=== PATIENT | female | born 1945 | race Caucasian/White ===

== ENCOUNTER 2017-09-06 11:15 | Observation (INO) ==
--- NOTE | 2017-09-06 11:24 | Emergency Department Note ---
Disposition Clinical Impression: Weakness Transient cerebral ischemia Qualifiers: Transient cerebral ischemia type: unspecified Qualified Code(s): G45.9 - Transient cerebral ischemic attack, unspecified Disposition: Admitted As Inpatient Condition: Undetermined Referrals: Aaron Ramos DO [Primary Care Provider] - Forms: ED Satisfaction Letter Time of Disposition: 13:11 Neuro HPI - General Chief Complaint: ED Neuro Symptoms/Deficit Stated Complaint: neuro S/S Time Seen by Provider: 09/06/17 11:19 Source: EMS Mode of arrival: EMS Limitations: no limitations Nursing Notes Reviewed: Yes Vital Signs Reviewed: Yes - History of Present Illness HPI Narrative: 72-year-old female with history of diabetes, hypertension, apparently history of TIA arrives to the emergency department after stating that she has felt ill over the past 2 days but roughly 1 hour, at 10:30 this morning, she did not feel well was having trouble getting words out. She called her daughter who decided to have EMS called at that time. The patient was slurring her words when she was speaking to her daughter but upon arrival from EMS the patient was not slurring her words but did have some expressive aphasia. Upon arrival to the emergency department she was having some expressive aphasia as well as a right upper extremity pronator drift. The patient was noted to have improvement of her expressive aphasia in the 10 minutes that she has been in the emergency department. The patient denies any headache. The patient was noted to be hypertensive with a systolic blood pressure of 186 from EMS. In addition the patient's glucose was in the mid 200s. The patient denies any other complaints at this time. She denies any chest pain, difficulty breathing , abdominal pain, dysuria, headache, fever, chills. Onset of Symptoms Date: 09/06/17 Onset of Symptoms Time: 10:30 Symptom Onset Unknown: No Timing confirmed by: family member Location: speech, right arm History of same: Yes Severity: mild Symptoms Improving: Yes Improves with: time Worsens with: none Context: sudden onset On Anticoagulants: No Associated symptoms: Reports: malaise Treatments Prior to Arrival: none - Related Data Home Medications: Home Medications Medication Instructions Recorded Confirmed Aspirin Enteric Coated [Aspirin EC] 08/25/17 GlipiZIDE [Glipizide ER] 08/25/17 Lisinopril [Zestril] 08/25/17 Meclizine HCl [Verticalm] 08/25/17 Metformin HCl [Glucophage] 08/25/17 Omeprazole [PriLOSEC] 08/25/17 Pioglitazone 08/25/17 Pravastatin Sodium [Pravachol] 08/25/17 Previous Rx's Medication Instructions Recorded Lactobac Cmb #3/Fos/Pantethine 1 each PO BID #30 capsule 01/24/17 [Probiotic & Acidophilus Cap] Amoxicillin 875 mg PO BID #20 tablet 08/25/17 Fluconazole [Diflucan] 150 mg PO Q3D #2 tab 08/25/17 GuaiFENesin ER [Mucinex] 1,200 mg PO BID #20 tbbp.12hr 08/25/17 Loratadine [Allergy Relief] 10 mg PO DAILY #30 tablet 08/25/17 Allergies/Adverse Reactions: Allergies Allergy/AdvReac Type Severity Reaction Status Date / Time Benzonatate Allergy Numbness Verified 10/21/16 10:26 [From Ed Barrera] All systems ED: reviewed and negative except as stated. Constitutional: Reports: weakness. Denies: fever, chills Eyes: Denies: eye pain, vision change ENT ED: Denies: congestion Cardiovascular: Denies: chest pain Respiratory: Denies: dyspnea Gastrointestinal: Denies: abdominal pain Genitourinary: Denies: urgency, dysuria Musculoskeletal: Denies: back pain Integumentary: Denies: rash Neurological: Reports: weakness. Denies: headache, numbness, paresthesias, confusion, vertigo Past Medical History - Past Medical History Attestation: Yes The following information was validated with the patient. Source: patient Medical history: Reports: diabetes, hypertension, TIA Surgical history: Reports: non-contributory AFTER SCHOOL PROGRAM ASSISTANT history: Reports: no AFTER SCHOOL PROGRAM ASSISTANT history - Social History Smoking Status: Never smoker Smokeless Tobacco Status: No Alcohol use: Reports: none Drug use: Reports: none Physical Exam - General Limitations: no limitations General appearance: alert, in no apparent distress - Head Head exam: atraumatic, normocephalic, normal inspection - Eye Eye exam: Present: normal appearance, PERRL, EOMI - ENT ENT exam: normal exam, normal oropharynx, mucous membranes moist - Neck Neck exam: Present: normal inspection, full ROM, trachea midline - Chest Chest inspection: Present: normal inspection, symmetric chest wall rise - Respiratory Respiratory exam: Present: normal lung sounds bilaterally - Cardiovascular Cardiovascular exam: Present: regular rate, normal rhythm, normal heart sounds - Abdominal Exam Abdominal exam: Present: soft, Non-Tender. Absent: tenderness, distention, guarding, rebound, rigidity - Extremities Exam Extremities exam: Present: normal inspection, full ROM. Absent: tenderness, pedal edema - Neurological Exam Neurological exam: Present: alert, oriented X3, CN II-XII intact - Expanded Neurological Exam Patient oriented to: Present: person, place, time Speech: Present: expressive aphasia Cranial nerves: EOM function (II, III, IV, ): Normal, facial sensation (V): Normal, facial palsy (VII): Normal Motor strength - LUE: 5/5 Motor strength - RUE: 5/5 Motor strength - LLE: 5/5 Motor strength - RLE: 5/5 Sensory exam upper extremity: light touch: Normal Sensory exam lower extremity: light touch: Normal Coma Scale Eye Opening: Spontaneous Coma Scale Motor Response: Obeys Commands Coma Scale Verbal Response: Oriented Coma Scale Total: 15 Course - Reevaluation(s) Reevaluation #1: Upon arrival to the emergency department the patient had NIH of 2 for mild to moderate aphasia as well as right pronator drift. The patient's aphasia has subsequently subsided. Time: 11:29 - Consultations Consultation #1: We spoke to Dr. Alcazar at [facility] neurology who had recommendations of no TPA and further stroke workup at [facility]. No other recommendations given at this time. Time: 11:59 Vital Signs Temperature 97.5 F L 09/06/17 11:20 Pulse Rate 90 09/06/17 11:20 Respiratory Rate 18 09/06/17 11:20 Blood Pressure 0/0 09/06/17 11:20 O2 Sat by Pulse Oximetry 96 09/06/17 11:20 Temperature 97.5 F L 09/06/17 11:20 Pulse Rate 90 09/06/17 11:49 Respiratory Rate 17 09/06/17 11:49 Blood Pressure 163/94 09/06/17 11:49 O2 Sat by Pulse Oximetry 99 09/06/17 11:49 Oxygen Delivery Oxygen Delivery Nasal Cannula Neuro Symptoms/Deficit - MDM Narrative Medical decision making narrative: Workup in the emergency department demonstrates no acute process. The patient does have a noted pronator drift that is new on physical exam. Her expressive aphasia that was present when she arrived has subsequently resolved. We will admit the patient to the hospitalist service as the patient was not a TPA candidate. The patient did receive 325 mg aspirin. The patient was made aware and agrees to plan. Accepted by Dr. Byrne. - Lab Data Lab results reviewed: Yes I reviewed the patient's lab results. Result diagrams: 09/06/17 11:24 09/06/17 11:24 Lab Results 09/06/17 09/06/17 09/06/17 Range/Units 11:22 11:24 11:24 WBC 8.3 (4.3-11.1) K/mcL RBC 5.79 H (3.82-4.97) M/mcL Hgb 16.3 H (11.5-15.4) g/dL Hct 49.8 H (35.3-44.9) % MCV 86.0 (83.0-100.0) fL MCH 28.2 (28.0-33.3) pg MCHC 32.7 (31.6-35.5) g/dL RDW 13.2 (11.5-14.5) % Plt Count 487 H (140-400) K/mcL MPV 9.1 L (9.4-12.4) fL Immature Gran % 1.1 (0-4) % Seg Neutrophils % 68.1 % Lymphocytes % 21.1 % Monocytes % 5.8 % Eosinophils % 3.1 % Basophils % 0.8 % Neutrophils # 5.7 (1.6-8.9) K/mcL Lymphocytes # 1.8 (0.6-4.6) K/mcL Monocytes # 0.5 (0.0-1.3) K/mcL Eosinophils # 0.3 (0.0-0.6) K/mcL Basophils # 0.1 (0.0-0.2) K/mcL PT 11.5 (9.4-12.1) Seconds INR 1.1 APTT 27.9 (26.0-36.0) Seconds VBG pH (7.32-7.42) pH Units VBG pCO2 (41-51) mmHg VBG pO2 (25-50) mmHg VBG HCO3 (21-27) mEq/L Sodium (136-145) mEq/L Potassium (3.5-4.5) mEq/L Chloride (98-109) mEq/L Carbon Dioxide (19-29) mEq/L BUN (7-20) mg/dL Creatinine (0.57-1.11) mg/dL Est GFR ( Amer) (> 60) Est GFR (Non-Af Amer) (> 60) BUN/Creatinine Ratio (6-26) Glucose (70-99) mg/dL POC Glucose 247 H (58-89) Calculated Osmolality (280-300) Calcium (8.6-10.8) mg/dL Troponin I (0-0.03) ng/mL 09/06/17 09/06/17 09/06/17 Range/Units 11:24 11:24 11:37 WBC (4.3-11.1) K/mcL RBC (3.82-4.97) M/mcL Hgb (11.5-15.4) g/dL Hct (35.3-44.9) % MCV (83.0-100.0) fL MCH (28.0-33.3) pg MCHC (31.6-35.5) g/dL RDW (11.5-14.5) % Plt Count (140-400) K/mcL MPV (9.4-12.4) fL Immature Gran % (0-4) % Seg Neutrophils % % Lymphocytes % % Monocytes % % Eosinophils % % Basophils % % Neutrophils # (1.6-8.9) K/mcL Lymphocytes # (0.6-4.6) K/mcL Monocytes # (0.0-1.3) K/mcL Eosinophils # (0.0-0.6) K/mcL Basophils # (0.0-0.2) K/mcL PT (9.4-12.1) Seconds INR APTT (26.0-36.0) Seconds VBG pH 7.35 (7.32-7.42) pH Units VBG pCO2 42 (41-51) mmHg VBG pO2 42 (25-50) mmHg VBG HCO3 23 (21-27) mEq/L Sodium 134 L (136-145) mEq/L Potassium 4.6 H (3.5-4.5) mEq/L Chloride 99 (98-109) mEq/L Carbon Dioxide 22 (19-29) mEq/L BUN 17 (7-20) mg/dL Creatinine 0.97 (0.57-1.11) mg/dL Est GFR ( Amer) > 60 (> 60) Est GFR (Non-Af Amer) 57 L (> 60) BUN/Creatinine Ratio 18 (6-26) Glucose 271 H (70-99) mg/dL POC Glucose (58-89) Calculated Osmolality 289 (280-300) Calcium 10.4 (8.6-10.8) mg/dL Troponin I 0.01 (0-0.03) ng/mL - Radiology Data Radiology results reviewed: Yes I reviewed the patient's radiology results. - EKG Data EKG attestation: Yes I reviewed and interpreted this EKG. EKG results narrative: Heart rate 89 bpm. MD interval 134 ms. QTc 384 ms. Normal sinus rhythm. No ST elevation or ST depression noted. No acute changes noted. NIH Stroke Scale - Level of Consciousness LOC: Alert - LOC Questions LOC Questions: Answers both correctly - LOC Commands LOC Commands: Performs both correctly - Best Gaze Best Gaze: Normal - Visual Visual: No visual loss - Facial Palsy Facial Palsy: Normal - Motor Arms Motor Arm-Left: No drift for 10 seconds Motor Arm-Right: Drift, does NOT hit bed - Motor Legs Motor Leg-Left: No drift for 5 seconds Motor Leg-Right: No drift for 5 seconds - Limb Ataxia Limb Ataxia: Normal, No Ataxia - Sensory Sensory: Normal - Best Language Best Language: Mild to moderate aphasia. Examiner can identify picture from response - Dysarthria Dysarthria: Normal - Extinction and Inattention Extinction and Inattention: Normal - NIHSS Total Score NIHSS Total Score: 2 TPA Checklist - LKW: 3-4.5 hrs Add. Warnings/Precautions Patient/family understanding: The patient/family members have been counseled and understood the risk, benefit , and alternatives of treatment.
[2017-09-06 11:36] LABS: Basophils % 0.8 %; Eosinophils % 3.1 %; Hematocrit 49.8 % (35.3-44.9); Hemoglobin 16.3 g/dL (11.5-15.4); Immature Granulocytes % 1.1 % (0-4); Lymphocytes % 21.1 %; Mean Corpuscular HGB Conc 32.7 g/dL (31.6-35.5); Mean Corpuscular Hemoglobin 28.2 pg (28.0-33.3); Mean Platelet Volume 9.1 fL (9.4-12.4); Monocytes % 5.8 %; Platelet Count 487 K/mcL (140-400); Red Blood Count 5.79 M/mcL (3.82-4.97); Red Cell Distribution Width 13.2 % (11.5-14.5); Segmented Neutrophils % 68.1 %
[2017-09-06 11:37] LABS: Basophils # 0.1 K/mcL (0.0-0.2); Eosinophils # 0.3 K/mcL (0.0-0.6); Lymphocytes # 1.8 K/mcL (0.6-4.6); Monocytes # 0.5 K/mcL (0.0-1.3); Neutrophils # 5.7 K/mcL (1.6-8.9)
[2017-09-06 11:40] LABS: VBG HCO3 23 mEq/L (21-27); VBG PCO2 42 mmHg (41-51); VBG PH 7.35 pH Units (7.32-7.42); VBG PO2 42 mmHg (25-50)
[2017-09-06 11:42] LABS: INR 1.1; Prothrombin Time 11.5 Seconds (9.4-12.1)
[2017-09-06 11:44] LABS: Activated Partial Thrombo Time 27.9 Seconds (26.0-36.0)
[2017-09-06 11:55] LABS: BUN/Creatinine Ratio 18 (6-26); Blood Urea Nitrogen 17 mg/dL (7-20); Calcium 10.4 mg/dL (8.6-10.8); Carbon Dioxide 22 mEq/L (19-29); Chloride 99 mEq/L (98-109); Glucose 271 mg/dL (70-99); Osmolality,Calculated 289 (280-300); Potassium 4.6 mEq/L (3.5-4.5); Sodium 134 mEq/L (136-145); eGFR For African Americans > 60 (> 60); eGFR For Non-African Americans 57 (> 60)
[2017-09-06] MEDS ORDERED: Aspirin 325 MG TABLET PO ONE (11:56)
[2017-09-06] MEDS ORDERED: 0.9 % Sodium Chloride 1,000 ML IVC ONE (11:58)
--- NOTE | 2017-09-06 12:02 | Emergency Department Note ---
START Narrative - START START: I examined this patient and my medical decision-making was reviewed with the Resident Physician. I agree with the documented findings, disposition and treatment plan as described except to the extent set forth below. 9-year-old female presents emergency room from her some expressive aphasia as well as a right pronator drift issue. CT of the head was unremarkable. His symptoms have essentially resolved at this point. She will be given an aspirin. Patient will can be admitted here. We did they tele-stroke system from [facility]. They are okay with her staying here as well. Screening labs and x- ray. EKG reveals no normality. Patient will need to be admitted. Again, her symptoms have resolved.
[2017-09-06 13:24] LABS: Bilirubin,Urine Small (Negative); Blood,Urine Negative (Negative); Clarity,Urine Clear (Clear); Color,Urine Yellow (Yellow); Glucose,Urine (UA) >=1000 mg/dL (Normal); Ketones,Urine 40 mg/dL (Negative); Leukocyte Esterase,Urine Trace (Negative); Nitrite,Urine Negative (Negative); PH,Urine 5.5 pH Units (5.0-8.0); Protein,Urine Trace mg/dL (Neg-Trace); Specific Gravity,Urine > 1.030 (1.010-1.025); Urobilinogen,Urine Normal (Normal)
[2017-09-06 13:27] LABS: Bacteria,Urine None Seen per hpf (None-Few); Squamous Epithelial Cell,Urine Many per lpf (None-Few)
[2017-09-06 13:46] LABS: Hyaline Casts,Urine Few per lpf (None-Few); Mucus,Urine Moderate (Few)
[2017-09-06 13:47] LABS: RBC,Urine 0-3 per hpf (0-3)
--- NOTE | 2017-09-06 15:10 | Electrocardiograph Report ---
[facility] [employer] Test Date: 2017-09-06 Pat Name: Lisa Vega Department: [id number] Room: 3B66 Gender: F Catcher Filter Tip: : 1945 Requested By: Aaron Croft Order Number: [id number] Reading MD: Bigg Joe MD Measurements Intervals Sheridan Rate: 89 P: 30 PA: 134 QRS: -42 QRSD: 66 T: -12 QT: 337 QTc: 384 Interpretive Statements SINUS RHYTHM PATTERN CONSISTENT WITH PULMONARY DISEASE INFERIOR MYOCARDIAL INFARCTION [40+ ms Q WAVE AND/OR ST/T ABNORMALITY IN II/aVF], OF INDETERMINATE AGE Electronically Signed On 09-06-2017 15:09:03 EST by Bigg Joe MD
--- NOTE | 2017-09-06 17:18 | Internal Med History&Physical ---
Date of Encounter: 09/06/17 Time of Encounter: 15:00 Assessment and Plan (1) Transient cerebral ischemia Current visit: Yes Status: Acute Qualifiers: Transient cerebral ischemia type: unspecified Qualified Code(s): G45.9 - Transient cerebral ischemic attack, unspecified (2) DM2 (diabetes mellitus, type 2) Current visit: Yes Status: Acute Qualifiers: Diabetes mellitus complication status: without complication Diabetes mellitus long term care administrator insulin use: without long term care administrator use Qualified Code(s): E11.9 - Type 2 diabetes mellitus without complications (3) HTN (hypertension), benign Current visit: Yes Status: Acute (4) GERD without esophagitis Current visit: Yes Status: Acute (5) Hyperlipidemia Current visit: Yes Status: Acute 72y/o female with hx of DM2, HTN, HLD who presented to the ED with expressive aphasia. Pt has had Resolution of symptoms, which is highly suggestive of TIA Will start TIA protocol orders. Check Swallow eval, continue ASA, statin and monitor BP Continue Neurochecks. Consult PT/OT. Will order a MRI brain and check Carotids and Echo. Home medications have been reviewed and reconciled Pt is a full code. Qualifiers: Hyperlipidemia type: pure hypercholesterolemia Qualified Code(s): E78.00 - Pure hypercholesterolemia, unspecified; E78.0 - Pure hypercholesterolemia Internal Medicine - H&P: HPI Chief complaint: Difficulty finding words Admitted From: Home Plans for Post Hospital Care: Home History of present illness: Ms. Vega is a 72 year old female DM2, HTN, who was brought to the hospital by her friend after she complained of difficulty getting her words out. Pt reported that she was otherwise fine yesterday, however today it all started when her brother called and she was trying to tell him that [facility] was [facility] when she sounded slurred according to the brother. Patient then called a friend who came over and continued to notice similar symptoms. Pt denies Headache, acute change in vision, fever, chest pain or chills. She denies upper or lower extremity weakness. During my conversation with the patient all symptoms had resolved. In the ED, pt was seen by [facility] and was deemed not to be a candidate for TPA. Past Med Surg Social Fam HX - Past Medical History Medical history: diabetes, hypertension Psychiatric history: no psych history - Past Surgical History Surgical History: orthopedic, other - Social History Smoking Status: Former smoker Smokeless Tobacco Status: No Alcohol use: rarely Drug use: none - Family History Mother Name: Salima Rahman Living Status: Age at : 59 Cause of : stroke Hx Family Neurologic Disorders: Yes (stroke) Internal Medicine - H&P: Meds Aspirin Enteric Coated [Aspirin EC] 81 mg PO DAILY 08/25/17 [History] GlipiZIDE [Glipizide ER] 10 mg PO BID 08/25/17 [History] Lisinopril [Zestril] 20 mg PO DAILY 08/25/17 [History] Loratadine [Allergy Relief] 10 mg PO DAILY #30 tablet 08/25/17 [Rx] Omeprazole [PriLOSEC] 20 mg PO DAILY 08/25/17 [History] Pravastatin Sodium [Pravachol] 20 mg PO DAILY 08/25/17 [History] metFORMIN [Glucophage] 1,000 mg PO BIDWM 09/06/17 [History] 3 Allergy/AdvReac Type Severity Reaction Status Date / Time Benzonatate Allergy Numbness Verified 10/21/16 10:26 [From Ed Barrera] All Systems PM: A 10-system review of systems was performed and is negative for pertinent findings except as documented above in the HPI. - Constitutional Constitutional: no chills, no fever(s), no night sweats - EENT Eyes: no change in vision, no discharge, no pain, no photophobia Ears: no ear discharge, no ear pain, no tinnitus Nose, mouth and throat: no dysphagia, no nasal discharge, no neck pain, no sore throat - Cardiovascular Cardiovascular ROS IM: no chest pain, no diaphoresis, no dyspnea, no lightheadedness, no palpitations, no syncope - Respiratory Respiratory: no cough, no dyspnea, no wheezing, no excessive phlegm production - Gastrointestinal Gastrointestinal: no abdominal pain, no diarrhea, no hematemesis, no hematochezia, no melena, no nausea, no vomiting - Genitourinary Genitourinary: no change in urinary stream, no dysuria, no flank pain, no hematuria - Musculoskeletal Musculoskeletal ROS IM: no numbness, no tingling - Integumentary Integumentary IM: no rash, no unusual bruising - Neurological Neurological ROS: no confusion, no convulsions, no focal weakness, no numbness, no tingling, no tremor(s) - Hematologic/Lymphatic Hematologic/Lymphatic: no easy bruising - Constitutional Vitals: Temp Pulse Resp BP Pulse Ox 97.7 F 84 16 178/80 96 09/06/17 14:58 09/06/17 14:58 09/06/17 14:58 09/06/17 14:58 09/06/17 14:58 General appearance: Present: A&O X 3 - Head Head exam: Present: atraumatic, normocephalic - Eye Eye exam: Present: PERRL, conjuntiva pink, sclera anicteric Pupils: Present: PERRL - Neck Neck exam general surgery: Present: supple, trachea midline. Absent: lymphadenopathy - Respiratory Respiratory exam: Present: CTAB. Absent: accessory muscle use, rales, rhonchi, wheezes - Cardiovascular Cardiovascular exam: Present: RRR, +S1, +S2. Absent: diastolic murmur, gallop, rubs, systolic murmur - GI/Abdominal GI/Abdominal exam: Present: normal bowel sounds, soft, no peritoneal signs. Absent: distended, tenderness - Extremities Exam Extremities exam: Present: warm, radial pulses palpable and symmetrical. Absent : calf tenderness, cyanotic, pedal edema - Neurological Exam Neurological exam: Present: CN II-XII intact, oriented X3, no focal deficits. Absent: pronater drift, facial droop, speech deficit - Skin Skin exam: Present: dry, intact Internal Med - H&P Results - Labs CBC & Chem 7: 09/06/17 11:24 09/06/17 11:24
[2017-09-06] MEDS ORDERED: Dextrose Gel 15 GM PO PRN ×2 (19:01)
[2017-09-06] MEDS ORDERED: D5% in Water 1,000 ML IVC PRN (19:01)
[2017-09-06] MEDS ORDERED: *HR* Dextrose 50 % in Water (Syg) 50 ML SYRINGE IVP PRN (19:01)
[2017-09-06] MEDS: Insulin LISPRO 300 UNITS/3 ML VIAL SQ SCH (20:34)
[2017-09-06] MEDS: *HR* GlipiZIDE XL (24 HR) 10 MG TABLET PO SCH (20:34)
[2017-09-07 05:00] LABS: Hematocrit 40.8 % (35.3-44.9); Mean Corpuscular HGB Conc 32.4 g/dL (31.6-35.5); Mean Corpuscular Volume 86.6 fL (83.0-100.0); Mean Platelet Volume 9.4 fL (9.4-12.4); Platelet Count 426 K/mcL (140-400); Red Blood Count 4.71 M/mcL (3.82-4.97); Red Cell Distribution Width 13.2 % (11.5-14.5)
[2017-09-07 05:01] LABS: Basophils # 0.1 K/mcL (0.0-0.2); Basophils % 1.5 %; Eosinophils # 0.2 K/mcL (0.0-0.6); Eosinophils % 3.1 %; Immature Granulocytes % 1.3 % (0-4); Lymphocytes # 1.8 K/mcL (0.6-4.6); Lymphocytes % 27.2 %; Monocytes # 0.5 K/mcL (0.0-1.3); Monocytes % 7.9 %
[2017-09-07 05:05] LABS: Hemoglobin 13.2 g/dL (11.5-15.4)
[2017-09-07 05:09] LABS: BUN/Creatinine Ratio 17 (6-26); Blood Urea Nitrogen 13 mg/dL (7-20); Calcium 9.2 mg/dL (8.6-10.8); Carbon Dioxide 24 mEq/L (19-29); Chloride 103 mEq/L (98-109); Chol/HDL Ratio 8.8 (0-4.9); Cholesterol 212 mg/dL (< 200); Glucose 236 mg/dL (70-99); HDL Cholesterol 24 mg/dL (40-59); LDL Cholesterol,Calculated 147 mg/dL (0-99); Osmolality,Calculated 286 (280-300); Potassium 4.1 mEq/L (3.5-4.5); Sodium 134 mEq/L (136-145); Triglycerides 204 mg/dL (< 150); eGFR For African Americans > 60 (> 60); eGFR For Non-African Americans > 60 (> 60)
[2017-09-07 06:52] LABS: Thyroid Stimulating Hormone 6.002 mcIU/mL (0.350-4.840)
[2017-09-07] MEDS: Aspirin 81 MG TAB.CHEW PO SCH (09:50)
[2017-09-07] MEDS: Lisinopril 20 MG TABLET PO SCH (09:50)
[2017-09-07] MEDS: *HR* GlipiZIDE XL (24 HR) 10 MG TABLET PO SCH ×2 (09:50→22:03)
[2017-09-07] MEDS: Insulin LISPRO 300 UNITS/3 ML VIAL SQ SCH ×4 (09:50→22:03)
--- NOTE | 2017-09-07 12:14 | Internal Med Progress Note ---
Date of Encounter: 09/07/17 Time of Encounter: 12:13 - Assessment and plan (1) Abnormal thyroid function test Current Visit: Yes Status: Acute Assessment and plan: Obtain Free T3 and T4 (2) Transient cerebral ischemia Current Visit: Yes Status: Acute Assessment and plan: Follow brain MRI, Carotid doppler No neuro deficits PTOT eval noted for gait unsteadiness and recommend outpatient therapy. GRAIN ELEVATOR AGENT unremarkable, patient is tolerating orally Abnormal lipid panel-change Zocor to Lipitor Qualifiers: Transient cerebral ischemia type: unspecified Qualified Code(s): G45.9 - Transient cerebral ischemic attack, unspecified (3) Weakness Current Visit: Yes Status: Acute Assessment and plan: Unsteady gait Await brain MRI PTOT eval noted, for out-patient PT and gait aid (4) DM2 (diabetes mellitus, type 2) Current Visit: Yes Status: Chronic Assessment and plan: Uncontrolled, hyperglycemia Check A1C with am labs Continue insulin Patient takes Glipizide and Metformin at home Qualifiers: Diabetes mellitus complication status: with hyperglycemia Diabetes mellitus longterm insulin use: without longterm use Qualified Code(s): E11.65 - Type 2 diabetes mellitus with hyperglycemia (5) HTN (hypertension), benign Current Visit: Yes Status: Chronic Assessment and plan: Continue home meds (6) GERD without esophagitis Current Visit: Yes Status: Chronic Assessment and plan: Continue home meds (7) Hyperlipidemia Current Visit: Yes Status: Chronic Assessment and plan: Uncontrolled Change to Lipitor Qualifiers: Hyperlipidemia type: pure hypercholesterolemia Qualified Code(s): E78.00 - Pure hypercholesterolemia, unspecified; E78.0 - Pure hypercholesterolemia - Subjective Interval history: Patient seen and examined at bedside 72 F with PMH of GERD, HLD, HTN, DM, admitted to observation for r/o TIA following a transient episode of expressive aphasia. She also reports gait instability and unsteadiness which has been going on for several weeks. She just recently completed a treatment for sinusitis Head CT on arrival negative She has no neurologic deficits on admission and at time of review ECHO done showed: LVEF 60-65%. Normal LV chamber size and function. Mild concentric left ventricular hypertrophy. Mild left ventricular diastolic dysfunction. Normal right ventricular structure and function. No evidence of pulmonary hypertension. No significant valvular dysfunction. No evidence of a PFO with agitated saline contrast All wall segments showed normal motion Carotid doppler USS pending Brain MRI pending TSH is elevated, patient is without known thyroid disease-we will send Free T3 and Free T4 - Constitutional Vitals: Temp Pulse Resp BP Pulse Ox 98.0 F 74 16 113/67 94 09/07/17 11:06 09/07/17 11:06 09/07/17 11:06 09/07/17 11:06 09/07/17 11:06 General appearance: Present: A&O X 3, pleasant, no acute distress - Head Head exam: Present: atraumatic, normocephalic - Eye Eye exam: Present: PERRL, conjuntiva pink, sclera anicteric Pupils: Present: PERRL - Neck Neck exam general surgery: Present: supple, trachea midline. Absent: lymphadenopathy - Respiratory Respiratory exam: Present: CTAB. Absent: accessory muscle use, rales, rhonchi, wheezes - Cardiovascular Cardiovascular exam: Present: RRR, +S1, +S2. Absent: diastolic murmur, gallop, rubs, systolic murmur - GI/Abdominal GI/Abdominal exam: Present: normal bowel sounds, soft, no peritoneal signs. Absent: distended, tenderness - Extremities Exam Extremities exam: Present: warm, radial pulses palpable and symmetrical. Absent : calf tenderness, cyanotic, pedal edema - Neurological Exam Neurological exam: Present: alert, CN II-XII intact, oriented X3, no focal deficits. Absent: pronater drift, facial droop, speech deficit - Skin Skin exam: Present: dry, intact Internal Medicine: Result - Labs CBC & Chem 7: 09/07/17 04:21 09/07/17 04:21 Labs: Short CBC 09/07/17 Range/Units 04:21 WBC 6.7 (4.3-11.1) K/mcL Hgb 13.2 D (11.5-15.4) g/dL Hct 40.8 (35.3-44.9) % Plt Count 426 H (140-400) K/mcL Neutrophils # 4.0 (1.6-8.9) K/mcL BMP 09/07/17 04:21 Sodium 134 L Potassium 4.1 Chloride 103 Carbon Dioxide 24 BUN 13 Creatinine 0.77 Glucose 236 H Calcium 9.2 - ABG Interpretation ABG results: PT/INR, D-dimer PT 11.5 Seconds (9.4-12.1) 09/06/17 11:24 Consult Discharge Plan - Plan Referrals: Aaron Ramos DO [Primary Care Provider] -
[2017-09-07 12:50] LABS: Triiodothyronine (T3) Free 2.36 pg/mL (1.71-3.71)
[2017-09-08 05:40] LABS: Basophils # 0.1 K/mcL (0.0-0.2); Eosinophils # 0.1 K/mcL (0.0-0.6); Eosinophils % 2.3 %; Hematocrit 40.9 % (35.3-44.9); Hemoglobin 13.4 g/dL (11.5-15.4); Immature Granulocytes % 1.5 % (0-4); Lymphocytes # 1.5 K/mcL (0.6-4.6); Lymphocytes % 24.7 %; Mean Corpuscular HGB Conc 32.8 g/dL (31.6-35.5); Mean Corpuscular Hemoglobin 28.8 pg (28.0-33.3); Mean Platelet Volume 9.6 fL (9.4-12.4); Monocytes # 0.6 K/mcL (0.0-1.3); Monocytes % 9.5 %; Neutrophils # 3.7 K/mcL (1.6-8.9); Platelet Count 415 K/mcL (140-400); Red Blood Count 4.65 M/mcL (3.82-4.97); Red Cell Distribution Width 13.3 % (11.5-14.5)
[2017-09-08 05:54] LABS: Hemoglobin A1C 12.1 %
[2017-09-08 05:59] LABS: BUN/Creatinine Ratio 18 (6-26); Blood Urea Nitrogen 14 mg/dL (7-20); Calcium 9.1 mg/dL (8.6-10.8); Carbon Dioxide 21 mEq/L (19-29); Chloride 106 mEq/L (98-109); Glucose 226 mg/dL (70-99); Osmolality,Calculated 292 (280-300); Potassium 4.3 mEq/L (3.5-4.5); Sodium 137 mEq/L (136-145); eGFR For African Americans > 60 (> 60); eGFR For Non-African Americans > 60 (> 60)
[2017-09-08] MEDS: Lisinopril 20 MG TABLET PO SCH (08:24)
[2017-09-08] MEDS: Insulin LISPRO 300 UNITS/3 ML VIAL SQ SCH ×2 (08:25→11:11)
[2017-09-08] MEDS: Aspirin 81 MG TAB.CHEW PO SCH (08:25)
[2017-09-08] MEDS: *HR* GlipiZIDE XL (24 HR) 10 MG TABLET PO SCH (08:25)
--- NOTE | 2017-09-08 10:19 | Discharge Summary ---
Date of Encounter: 09/08/17 Time of Encounter: 10:10 - Discharge Diagnosis (1) Abnormal thyroid function test Priority: Primary Status: Acute (2) Transient cerebral ischemia Priority: Primary Status: Acute Qualifiers: Transient cerebral ischemia type: unspecified Qualified Code(s): G45.9 - Transient cerebral ischemic attack, unspecified (3) Weakness Priority: Secondary Status: Chronic (4) DM2 (diabetes mellitus, type 2) Priority: Secondary Status: Chronic Qualifiers: Diabetes mellitus complication status: with hyperglycemia Diabetes mellitus terminal operator insulin use: without terminal operator use Qualified Code(s): E11.65 - Type 2 diabetes mellitus with hyperglycemia (5) HTN (hypertension), benign Priority: Secondary Status: Chronic (6) GERD without esophagitis Priority: Secondary Status: Chronic (7) Hyperlipidemia Priority: Secondary Status: Chronic Qualifiers: Hyperlipidemia type: pure hypercholesterolemia Qualified Code(s): E78.00 - Pure hypercholesterolemia, unspecified; E78.0 - Pure hypercholesterolemia - Discharge Medications Prescriptions: Atorvastatin [Lipitor] 40 mg PO HS #30 tablet Blood Sugar Diagnostic [Glucose Test Strip] 1 each MC DAILY #30 strip Dextrose/Maltodextrin [Glucose Powder Packets] 1 each PO DAILY PRN #10 powd.pack PRN Reason: Hypoglycemia Insulin DETEMIR [Levemir] 10 unit SQ HS #2 vial Syrge-Ndl,Ins 0.3 ml Half Jose [Insulin Syringe] 1 each MC DAILY #30 disp.syrin Home Medications: Aspirin Enteric Coated [Aspirin EC] 81 mg PO DAILY 08/25/17 [History] GlipiZIDE [Glipizide ER] 10 mg PO BID 08/25/17 [History] Lisinopril [Zestril] 20 mg PO DAILY 08/25/17 [History] Loratadine [Allergy Relief] 10 mg PO DAILY #30 tablet 08/25/17 [Rx] Omeprazole [PriLOSEC] 20 mg PO DAILY 08/25/17 [History] metFORMIN [Glucophage] 1,000 mg PO BIDWM 09/06/17 [History] Atorvastatin [Lipitor] 40 mg PO HS #30 tablet 09/08/17 [Rx] Blood Sugar Diagnostic [Glucose Test Strip] 1 each MC DAILY #30 strip 09/08/17 [ Rx] Dextrose/Maltodextrin [Glucose Powder Packets] 1 each PO DAILY PRN #10 powd.pack 09/08/17 [Rx] Insulin DETEMIR [Levemir] 10 unit SQ HS #2 vial 09/08/17 [Rx] Syrge-Ndl,Ins 0.3 ml Half Jose [Insulin Syringe] 1 each MC DAILY #30 disp.syrin 09/08/17 [Rx] Allergies/Adverse Reactions: 3 Allergy/AdvReac Type Severity Reaction Status Date / Time Benzonatate Allergy Numbness Verified 10/21/16 10:26 [From Ed Barrera] Procedures/tests Complete & Pending: Procedures Performed prior 72 hours Category Date Time Status MR head/brain wo con [MR] Routine MRI 09/07/17 11:13 Completed EV carotid duplex imaging BI Routine Y 09/07/17 17:37 Completed EV echo with saline Routine Y 09/07/17 17:37 Completed Date of admission: 09/06/17 13:18 Primary care physician: Boogie Hawthorne Consults: 09/06/17 16:24 Consult to Occupational Therapy [CONS] Routine Comment: Evaluate, develop and implement POC Reason for Consult: TIA Consult to Physical Therapy [CONS] Routine Comment: Evaluate, develop and implement POC Reason for Consult: TIA Discharging clinician: Sal Perez Anticipated date of discharge: 09/08/17 - Patient Status Disposition: Home, Self-Care Condition: Good Functional capacity at discharge: independent ambulation Overall status at discharge: patient is back to baseline - Discharge Instructions Instructions: Diabetes Mellitus Type 2 in Adults (DC), Chronic Hypertension (DC ) Follow Up With: Aaron Ramos DO [Primary Care Provider] - 09/28/17 10:15 am (follow up from hospital stay) - Diet and Activity Activity: as per physical therapy (PT as outpatient), resume usual activities as tolerated Diet: diabetic diet, low fat, low cholesterol, low salt diet Interval History: See below Hospital course: Ms. Vega is a 72 year old female 72 F with PMH of GERD, HLD, HTN, DM, admitted to observation for r/o TIA following a transient episode of expressive aphasia. She also reports gait instability and unsteadiness which has been going on for several weeks. She just recently completed a treatment for sinusitis Head CT on arrival negative She has no neurologic deficits on admission and at time of review She is able to tolerate orally, she has worked with physical therapy and occupational therapy. Her brain MRI reveals sinusitis without evidence of acute infarct. Her echocardiogram shows left ventricular ejection fraction 60-65% with a normal left ventricular chamber size and function she also has mild left ventricular diastolic dysfunction. Carotid Doppler unremarkable for stenosis. Her workup also revealed uncontrolled diabetes with A1c of 12, elevated thyroid- stimulating hormone. Patient is not a known thyroid disease patient. She is medically stable at this morning she has no new complaints. Stable to be discharged on insulin long-acting. She is educated about hypoglycemia, and is also discharged on glucose buckets when necessary hypoglycemia. She has an appointment with her primary care physician next week. Physical therapy recommended outpatient physical therapy. - Time Spent with Patient Total time spent providing and/or coordinating discharge services: Greater than 30 minutes - Constitutional Vitals: Temp Pulse Resp BP Pulse Ox 97.6 F 87 16 105/64 95 09/08/17 07:52 09/08/17 07:52 09/08/17 07:52 09/08/17 07:52 09/08/17 07:52 General appearance: Present: A&O X 3, pleasant, no acute distress - Head Head exam: Present: atraumatic, normocephalic - Eye Eye exam: Present: PERRL, conjuntiva pink, sclera anicteric Pupils: Present: PERRL - Neck Neck exam general surgery: Present: supple, trachea midline. Absent: lymphadenopathy - Respiratory Respiratory exam: Present: CTAB. Absent: accessory muscle use, rales, rhonchi, wheezes - Cardiovascular Cardiovascular exam: Present: RRR, +S1, +S2. Absent: diastolic murmur, gallop, rubs, systolic murmur - GI/Abdominal GI/Abdominal exam: Present: normal bowel sounds, soft, no peritoneal signs. Absent: distended, tenderness - Extremities Exam Extremities exam: Present: warm, radial pulses palpable and symmetrical. Absent : calf tenderness, cyanotic, pedal edema - Neurological Exam Neurological exam: Present: alert, CN II-XII intact, oriented X3, no focal deficits. Absent: pronater drift, facial droop, speech deficit - Skin Skin exam: Present: dry, intact
[2017-09-08 10:40] VITALS: BP 107/69
== END 2017-09-08 15:13 | disposition home or self-care (01) ==
LOC: 3BNU 11:15 → EMEROO 11:15 → SUATTDRO 13:18 → 3BNU 14:21
PROVIDERS: ADMIT Internal Medicine; ATTEND Internal Medicine

== ENCOUNTER 2019-07-17 20:11 | Observation (INO) ==
[2019-07-17] MEDS ORDERED: Aspirin 81 MG TAB.CHEW PO ONE (21:13)
[2019-07-17] MEDS ORDERED: Nitroglycerin 0.4 MG TAB.SUBL SL PRN (21:13)
[2019-07-17 21:43] LABS: Basophils # 0.1 K/mcL (0.0-0.2); Basophils % 0.8 %; Eosinophils # 0.1 K/mcL (0.0-0.6); Eosinophils % 1.1 %; Hematocrit 41.5 % (35.3-44.9); Hemoglobin 13.5 g/dL (11.5-15.4); Immature Granulocytes % 0.9 % (0-4); Lymphocytes # 2.4 K/mcL (0.6-4.6); Lymphocytes % 27.7 %; Mean Corpuscular HGB Conc 32.5 g/dL (31.6-35.5); Mean Corpuscular Hemoglobin 28.7 pg (28.0-33.3); Mean Corpuscular Volume 88.3 fL (83.0-100.0); Mean Platelet Volume 10.1 fL (9.4-12.4); Monocytes # 0.6 K/mcL (0.0-1.3); Monocytes % 6.3 %; Neutrophils # 5.5 K/mcL (1.6-8.9); Platelet Count 336 K/mcL (140-400); Red Cell Distribution Width 12.9 % (11.5-14.5); Segmented Neutrophils % 63.2 %; White Blood Count 8.8 K/mcL (4.3-11.1)
[2019-07-17 22:05] LABS: BUN/Creatinine Ratio 16 (6-26); Blood Urea Nitrogen 14 mg/dL (8-23); Calcium 8.9 mg/dL (8.6-10.3); Carbon Dioxide 22 mEq/L (23-29); Chloride 102 mEq/L (98-107); Glucose 388 mg/dL (70-105); Osmolality,Calculated 301 (280-300); Potassium 3.7 mEq/L (3.5-5.1); Sodium 137 mEq/L (136-145); Troponin I < 0.03 ng/mL (< 0.04); eGFR For African Americans > 60 (> 60); eGFR For Non-African Americans > 60 (> 60)
[2019-07-17] MEDS ORDERED: Naloxone 0.4 MG/ML INJ IVP PRN (23:21)
[2019-07-17] MEDS ORDERED: Dextrose Gel 15 GM/37.5 ML TUBE PO PRN ×2 (23:24)
[2019-07-17] MEDS ORDERED: *HR* Dextrose 50 % in Water (Syg) 50 ML SYRINGE IVP PRN (23:24)
[2019-07-17] MEDS ORDERED: D5% in Water 1,000 ML IVC PRN (23:24)
[2019-07-17] MEDS ORDERED: Insulin DETEMIR 100 UNIT/ML X5UNITS SQ SCH (23:45)
[2019-07-18] MEDS: Insulin LISPRO 300 UNITS/3 ML VIAL SQ SCH ×4 (00:14→12:12)
[2019-07-18 00:42] LABS: Hematocrit 40.5 % (35.3-44.9); Hemoglobin 13.6 g/dL (11.5-15.4); Mean Corpuscular HGB Conc 33.6 g/dL (31.6-35.5); Mean Corpuscular Hemoglobin 29.3 pg (28.0-33.3); Mean Corpuscular Volume 87.3 fL (83.0-100.0); Mean Platelet Volume 9.6 fL (9.4-12.4); Platelet Count 339 K/mcL (140-400); Red Blood Count 4.64 M/mcL (3.82-4.97); Red Cell Distribution Width 12.9 % (11.5-14.5); White Blood Count 8.7 K/mcL (4.3-11.1)
[2019-07-18 00:50] LABS: INR 0.9; Prothrombin Time 10.5 Seconds (9.4-12.1)
[2019-07-18 00:53] LABS: Activated Partial Thrombo Time 30.3 Seconds (26.0-36.0)
[2019-07-18 00:59] LABS: Alanine Aminotransferase 19 Units/L (7-52); Albumin 3.9 g/dL (3.5-5.7); Albumin/Globulin Ratio 1.3 (1.1-2.2); Alkaline Phosphatase 78 Units/L (34-104); Aspartate Amino Transferase 14 Units/L (13-39); BUN/Creatinine Ratio 18 (6-26); Bilirubin,Total 0.2 mg/dL (0.3-1.0); Blood Urea Nitrogen 15 mg/dL (8-23); Calcium 9.1 mg/dL (8.6-10.3); Carbon Dioxide 22 mEq/L (23-29); Chloride 105 mEq/L (98-107); Chol/HDL Ratio 5.1 (0-4.9); Cholesterol 180 mg/dL (< 200); Globulin 3.1 g/dL (2.4-3.5); Glucose 310 mg/dL (70-105); HDL Cholesterol 35 mg/dL (40-59); LDL Cholesterol,Calculated 109 mg/dL (0-99); Osmolality,Calculated 295 (280-300); Potassium 3.7 mEq/L (3.5-5.1); Sodium 136 mEq/L (136-145); Triglycerides 179 mg/dL (< 150); eGFR For African Americans > 60 (> 60); eGFR For Non-African Americans > 60 (> 60)
[2019-07-18] MEDS ORDERED: Regadenoson 0.4 MG/5 ML SYRINGE IVP ONE (06:39)
[2019-07-18 08:55] LABS: Estimated Average Glucose 275 mg/dl
[2019-07-18] MEDS ORDERED: (Ezetimibe 10 MG) PO SCH (09:00)
[2019-07-18] MEDS ORDERED: Lisinopril 20 MG TABLET PO SCH (09:00)
[2019-07-18 15:08] VITALS: BP 159/83
== END 2019-07-18 16:26 | disposition home or self-care (01) ==
LOC: EMEROOARM 20:11 → 2NENU 20:11 → SUATTDRO 23:04 → 2NENU 23:23
PROVIDERS: ADMIT Internal Medicine; ATTEND Internal Medicine

== ENCOUNTER 2020-04-20 10:59 | Observation (INO) ==
[2020-04-20] MEDS ORDERED: Isovue-370 500 ML BOTTLE IVP ONE ×2 (12:13→15:36)
[2020-04-20] MEDS ORDERED: 0.9 % Sodium Chloride 1,000 ML IVC ONE ×2 (12:18→15:11)
[2020-04-20 12:20] LABS: Basophils # 0.1 K/mcL (0.0-0.2); Basophils % 0.7 %; Eosinophils # 0.2 K/mcL (0.0-0.6); Eosinophils % 1.2 %; Hematocrit 43.4 % (35.3-44.9); Hemoglobin 13.7 g/dL (11.5-15.4); Immature Granulocytes % 0.7 % (0-4); Lymphocytes # 1.9 K/mcL (0.6-4.6); Lymphocytes % 15.7 %; Mean Corpuscular HGB Conc 31.6 g/dL (31.6-35.5); Mean Corpuscular Hemoglobin 27.8 pg (28.0-33.3); Mean Platelet Volume 9.8 fL (9.4-12.4); Monocytes # 0.7 K/mcL (0.0-1.3); Monocytes % 5.4 %; Neutrophils # 9.2 K/mcL (1.6-8.9); Platelet Count 381 K/mcL (140-400); Red Blood Count 4.93 M/mcL (3.82-4.97); Red Cell Distribution Width 12.9 % (11.5-14.5); Segmented Neutrophils % 76.3 %; White Blood Count 12.1 K/mcL (4.3-11.1)
[2020-04-20 12:40] LABS: Alanine Aminotransferase 28 Units/L (7-52); Albumin 4.1 g/dL (3.5-5.7); Albumin/Globulin Ratio 1.2 (1.1-2.2); Alkaline Phosphatase 76 Units/L (34-104); Aspartate Amino Transferase 26 Units/L (13-39); BUN/Creatinine Ratio 22 (6-26); Bilirubin,Indirect 0.4 mg/dL (0.0-1.0); Bilirubin,Total 0.4 mg/dL (0.3-1.0); Blood Urea Nitrogen 19 mg/dL (8-23); Calcium 9.7 mg/dL (8.6-10.3); Carbon Dioxide 21 mEq/L (23-29); Chloride 102 mEq/L (98-107); Globulin 3.5 g/dL (2.4-3.5); Glucose 292 mg/dL (70-105); Lipase 22 Units/L (11-82); Osmolality,Calculated 293 (280-300); Potassium 4.7 mEq/L (3.5-5.1); Sodium 135 mEq/L (136-145); Total Protein 7.6 g/dL (6.4-8.9); eGFR For African Americans > 60 (> 60); eGFR For Non-African Americans > 60 (> 60)
[2020-04-20 14:18] LABS: Bilirubin,Urine Negative (Negative); Blood,Urine Negative (Negative); Clarity,Urine Clear (Clear); Color,Urine Light-Yellow (Yellow); Glucose,Urine (UA) 500 mg/dL (Normal); Ketones,Urine Negative (Negative); Leukocyte Esterase,Urine Negative (Negative); Mucus,Urine Few per lpf (None-Few); Nitrite,Urine Negative (Negative); Protein,Urine Negative (Neg-Trace); RBC,Urine 0-3 per hpf (0-3); Specific Gravity,Urine > 1.030 (1.010-1.025); Squamous Epithelial Cell,Urine Few per hpf (None-Few); Urobilinogen,Urine Normal (Normal); WBC,Urine 0-3 per hpf (0-3)
[2020-04-20] MEDS ORDERED: MetroNIDAZOLE 500 MG/100 ML 500 MG/100 ML BAG IVPB ONE (15:11)
[2020-04-20] MEDS ORDERED: *HR* HYDROcodone/Acet 5/325 mg TABLET PO PRN (16:01)
[2020-04-20] MEDS ORDERED: Acetaminophen 325 MG TABLET PO PRN (16:01)
[2020-04-20] MEDS ORDERED: Naloxone 0.4 MG/ML INJ IVP PRN (16:01)
[2020-04-20] MEDS ORDERED: Ondansetron 4 MG/2 ML VIAL IVP PRN (16:01)
[2020-04-20] MEDS ORDERED: *HR* OxyCODONE Immed Rel 5 MG TABLET PO PRN (16:01)
[2020-04-20] MEDS ORDERED: Dextrose Gel 15 GM/37.5 ML TUBE PO PRN ×2 (16:06)
[2020-04-20] MEDS ORDERED: *HR* Dextrose 50 % in Water (Vial) 50 ML VIAL IVP PRN (16:06)
[2020-04-20] MEDS ORDERED: D5% in Water 1,000 ML IVC PRN (16:06)
[2020-04-20] MEDS: Insulin LISPRO 300 UNITS/3 ML VIAL SQ SCH (18:35)
[2020-04-20] MEDS: metroNIDAZOLE 500 MG TABLET PO SCH (20:32)
[2020-04-20] MEDS: 0.9 % Sodium Chloride 1,000 ML IVC SCH (20:32)
[2020-04-21 04:11] LABS: Basophils # 0.1 K/mcL (0.0-0.2); Basophils % 0.6 %; Eosinophils # 0.1 K/mcL (0.0-0.6); Eosinophils % 1.5 %; Hematocrit 35.6 % (35.3-44.9); Immature Granulocytes % 0.9 % (0-4); Lymphocytes # 1.6 K/mcL (0.6-4.6); Mean Corpuscular HGB Conc 30.9 g/dL (31.6-35.5); Mean Corpuscular Hemoglobin 27.8 pg (28.0-33.3); Mean Corpuscular Volume 90.1 fL (83.0-100.0); Mean Platelet Volume 9.9 fL (9.4-12.4); Monocytes # 0.5 K/mcL (0.0-1.3); Monocytes % 6.3 %; Neutrophils # 5.8 K/mcL (1.6-8.9); Platelet Count 271 K/mcL (140-400); Red Blood Count 3.95 M/mcL (3.82-4.97); Red Cell Distribution Width 12.9 % (11.5-14.5); Segmented Neutrophils % 70.7 %; White Blood Count 8.1 K/mcL (4.3-11.1)
[2020-04-21 04:34] LABS: BUN/Creatinine Ratio 16 (6-26); Blood Urea Nitrogen 11 mg/dL (8-23); Calcium 7.9 mg/dL (8.6-10.3); Carbon Dioxide 21 mEq/L (23-29); Chloride 110 mEq/L (98-107); Glucose 144 mg/dL (70-105); Osmolality,Calculated 288 (280-300); Potassium 4.2 mEq/L (3.5-5.1); Sodium 138 mEq/L (136-145); eGFR For African Americans > 60 (> 60); eGFR For Non-African Americans > 60 (> 60)
[2020-04-21] MEDS: 0.9 % Sodium Chloride 1,000 ML IVC SCH (09:32)
[2020-04-21] MEDS: Insulin LISPRO 300 UNITS/3 ML VIAL SQ SCH ×3 (09:38→17:40)
[2020-04-21] MEDS: metroNIDAZOLE 500 MG TABLET PO SCH ×3 (09:38→22:29)
[2020-04-21 12:29] LABS: Adenovirus F 40/41 PCR Not detected (Not detect); Astrovirus PCR Not detected (Not detect); C.difficile Toxin A/B Gene PCR Not detected (Not detect); Campylobacter by PCR Not detected (Not detect); Cryptosporidium by PCR Not detected (Not detect); Cyclospora cayetanensis PCR Not detected (Not detect); E. coli O157 by PCR Not detected (Not detect); Entamoeba histolytica PCR Not detected (Not detect); Enteroaggregative E.coli(EAEC) Not detected (Not detect); Enteropathogenic E.coli(EPEC) Not detected (Not detect); Enterotoxigenic E.coli (ETEC) Not detected (Not detect); Giardia lamblia PCR Not detected (Not detect); Norovirus GI/GII PCR Not detected (Not detect); Plesiomonas shigelloides PCR Not detected (Not detect); Rotavirus A PCR Not detected (Not detect); Salmonella PCR Not detected (Not detect); Sapovirus PCR Not detected (Not detect); Shig/EnteroinvasiveE coli EIEC Not detected (Not detect); Shigalike tox-prod E coli STEC Not detected (Not detect); Vibrio PCR Not detected (Not detect); Vibrio cholerae PCR Not detected (Not detect); Yersinia enterocolitica PCR Not detected (Not detect)
[2020-04-21] MEDS: *HR* GlipiZIDE XL (24 HR) 10 MG TABLET PO SCH (16:22)
[2020-04-21] MEDS: *HR* Heparin 5,000 UNIT/ML VIAL SQ SCH (17:46)
[2020-04-22] MEDS: *HR* Heparin 5,000 UNIT/ML VIAL SQ SCH (05:20)
[2020-04-22 06:46] VITALS: BP 153/71
[2020-04-22] MEDS ORDERED: Aspirin Enteric Coated 81 MG Tablet PO SCH (09:00)
[2020-04-22] MEDS ORDERED: (Ezetimibe [Zetia] 10 MG) PO SCH (09:00)
[2020-04-22] MEDS: Insulin LISPRO 300 UNITS/3 ML VIAL SQ SCH (10:32)
[2020-04-22] MEDS: *HR* GlipiZIDE XL (24 HR) 10 MG TABLET PO SCH (10:34)
[2020-04-22] MEDS: metroNIDAZOLE 500 MG TABLET PO SCH (10:34)
== END 2020-04-22 11:50 | disposition home or self-care (01) ==
LOC: EMEROOARM 10:59 → 3ANU 10:59 → SUATTDRO 16:32 → 3ANU 18:15
PROVIDERS: ADMIT Internal Medicine; ATTEND Internal Medicine